=== PATIENT | female | born 1970 | race Caucasian/White ===

== ENCOUNTER 2019-09-09 17:16 | Inpatient (IN) | payer BC ==
[~2019-09-09] VITALS: Ht 170.2 cm; Wt 71.5 kg
[2019-09-09] MEDS ORDERED: CYMBALTA60 MG PO (17:36)
--- NOTE | 2019-09-09 17:45 | NUR ---
PT REPORTS USING MEDICAL MARIJUANA
[2019-09-09 17:55] LABS: APPEARANCE CLEAR (CLEAR); COLOR YELLOW (YELLOW); NITRITE NEGATIVE (NEGATIVE); PROTEIN NEGATIVE (NEGATIVE)
[2019-09-09 17:56] LABS: BASOPHILS 0.3 % (0-2); HEMATOCRIT 38.6 % (36.0-48.0); HEMOGLOBIN 13.6 g/dL (12-16); IMMATURE GRANULOCYTES 0.2 % (0-5); LYMPHOCYTES 24.8 % (15-50); MCH 30.4 pg (26.0-34.0); MCHC 35.2 g/dL (31.0-37.0); MCV 86.4 fL (80.0-100.0); MEAN PLATELET VOLUME 9.5 fL (7.4-10.4); MONOCYTES 10.5 % (2-11); NEUTROPHILS 63.2 % (40-80); RBC 4.47 10x6/uL (4.00-5.40); RDW 13.4 % (11.5-14.5)
[2019-09-09 17:56] LABS: BILIRUBIN NEGATIVE (NEGATIVE); GLUCOSE NEGATIVE (NEGATIVE); KETONE NEGATIVE (NEGATIVE); UROBILINOGEN NORMAL (NORMAL)
[2019-09-09 17:57] LABS: PLATELET COUNT 321 10x3/uL (130-400)
[2019-09-09 17:57] LABS: BACTERIA FEW /hpf (NEGATIVE); EPITHELIAL CELLS 0-5 /hpf (0-5); RED CELLS - URINE 0-5 /hpf (0-5); WHITE CELLS - URINE 0-5 /hpf (NEGATIVE)
[2019-09-09 18:11] LABS: UDS - AMPHET NEGATIVE QUAL (NEGATIVE); UDS - BARB NEGATIVE QUAL (NEGATIVE); UDS - BENZO POSITIVE QUAL (NEGATIVE); UDS - COCAINE NEGATIVE QUAL (NEGATIVE); UDS - OPIATE NEGATIVE QUAL (NEGATIVE); UDS - PCP NEGATIVE QUAL (NEGATIVE); UDS - THC POSITIVE QUAL (NEGATIVE)
[2019-09-09 18:31] LABS: ALKALINE PHOSPHATASE 79 U/L (46-116); ALT (SGPT) 22 U/L (10-68); BILIRUBIN - TOTAL 0.44 mg/dL (0.2-1.3); CALC OSMOLALITY 274 mosm/kg (275-300); CALCIUM 9.4 mg/dL (8.5-10.1); CARBON DIOXIDE 27.3 mmol/L (21.0-32.0); CHLORIDE - SERUM 101 mmol/L (98-107); CREATININE - SERUM 0.7 mg/dL (0.6-1.3); GLUCOSE 104 mg/dL (74-106); MAGNESIUM - SERUM 2.2 mg/dL (1.8-2.4); PROTEIN - SERUM 7.9 g/dL (6.4-8.2); SODIUM 139 mmol/L (136-145); UREA NITROGEN 4 mg/dL (7-18); eGFR NON AFRICAN AMERICAN > 90 mL/min (90-120)
[2019-09-09 18:34] LABS: POTASSIUM - SERUM 2.6 mmol/L (3.5-5.1)
[2019-09-09 18:56] LABS: C-REACTIVE PROTEIN 0.8 mg/dL (0.0-0.9); THYROID STIMULATING HORMONE 4.28 uIU/mL (0.36-3.74)
[2019-09-09 19:01] LABS: CKMB 1.6 U/L (0.0-3.6); CREATINE KINASE 174 UL (21-215)
--- NOTE | 2019-09-09 19:16 | NUR ---
PT ALERT AND IN SCRUBS. BELONGINGS SENT HOME WITH FAMILY. PT REQUESTING PEANUT BUTTER AND SALTINE CRACKERS- GIVEN.
[2019-09-09 19:37] LABS: ERYTHROCYTE SEDIMENTATION RATE 10 mm/hr (0-30)
--- NOTE | 2019-09-09 20:06 | NUR ---
VALIUM TO PATIENT AT PATIENT'S REQUEST. FAMILY STATES THAT IS ONE OF HER REGU LAR MEDICATIONS. CT SCAN OF THE HEAD ORDERED.
--- NOTE | 2019-09-09 20:28 | NUR ---
CT HERE TO DO SCAN.
--- NOTE | 2019-09-09 20:50 | NUR ---
PT BACK FROM CT. TALKED TO PATIENT ABOUT GETTING IV AND ABG- PT REFUSING AT THIS TIME. STATES "I'LL JUST HAVE TO GET A DIVING SUPERVISOR IF WE HAVE TO DO ALL THAT"- PT OPEN TO ORAL ANTIBIOTICS AND V/S AT THIS TIME.
--- NOTE | 2019-09-09 21:07 | NUR ---
ROOM CHANGED TO 2101.
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
[2019-09-09 22:29] VITALS: BP 136/89; BMI 24.7
--- NOTE | 2019-09-09 23:11 | NUR ---
PT STATES IF SHE DOESNT GET HER PAIN MEDICATION SHE WILL START KICKING IN 3 MINUITES. PAGED SEAN FREGOSO.
[2019-09-10] VITALS: BP 123/83
[2019-09-10 05:35] LABS: BASOPHILS 0.2 % (0-2); EOSINOPHILS 2.3 % (0-7); HEMATOCRIT 35.7 % (36.0-48.0); HEMOGLOBIN 12.2 g/dL (12-16); LYMPHOCYTES 42.7 % (15-50); MCHC 34.2 g/dL (31.0-37.0); MCV 87.7 fL (80.0-100.0); MONOCYTES 12.8 % (2-11); PLATELET COUNT 305 10x3/uL (130-400); RBC 4.07 10x6/uL (4.00-5.40); RDW 13.8 % (11.5-14.5)
[2019-09-10 05:39] LABS: WBC 4.3 10x3/uL (4.8-10.8)
[2019-09-10 06:03] LABS: ALBUMIN 3.2 g/dL (3.4-5.0); ALKALINE PHOSPHATASE 69 U/L (46-116); ALT (SGPT) 19 U/L (10-68); BILIRUBIN - TOTAL 0.35 mg/dL (0.2-1.3); CALC OSMOLALITY 278 mosm/kg (275-300); CALCIUM 8.9 mg/dL (8.5-10.1); CARBON DIOXIDE 30.1 mmol/L (21.0-32.0); CHLORIDE - SERUM 103 mmol/L (98-107); CREATININE - SERUM 0.8 mg/dL (0.6-1.3); GLUCOSE 117 mg/dL (74-106); PROTEIN - SERUM 6.6 g/dL (6.4-8.2); SODIUM 141 mmol/L (136-145); UREA NITROGEN 5 mg/dL (7-18); eGFR NON AFRICAN AMERICAN 80 mL/min (90-120)
[2019-09-10 06:13] LABS: POTASSIUM - SERUM 2.8 mmol/L (3.5-5.1)
[2019-09-10] MEDS ORDERED: HYDROCODON-ACE1 EAC2 PO (07:38)
[2019-09-10] MEDS ORDERED: VALIUM5 MG PO (07:38)
[2019-09-10 08:02] VITALS: BP 141/93
[2019-09-10 08:27] VITALS: Ht 170.2 cm; Wt 71.5 kg
[2019-09-10 11:56] VITALS: BP 151/83
--- NOTE | 2019-09-10 14:43 | NUR ---
I have reviewed this patient and I concur with the Shift Assessment completed by the Licensed Practical Nurse today this shift.
[2019-09-10 17:20] VITALS: BP 146/75
--- NOTE | 2019-09-10 19:26 | NUR ---
RECEIVED LAYING IN BED WITH EYES OPEN AND TV ON. ALERT AND ORIENTED X2. PLEASANT AND CALM. SOFT SPOKEN. UP AD NIKKI TO B/R. DENIES ANY NEEDS AT THIS TIME. DENIES ANY PAIN.
[2019-09-10 20:30] VITALS: BP 116/77
--- NOTE | 2019-09-11 01:39 | NUR ---
RESTING IN BED WITH EYES CLOSED. NO S/S OF DISTRESS OBSERVED.
--- NOTE | 2019-09-11 04:32 | NUR ---
REQUESTED SOMETHING FOR NECK PAIN. VALIUM GIVEN FOR SPASMS. TALKING DELUSIONAL. UNABLE TO CARRY OUT THOUGHTS. TALKING ABOUT [employer] BEING AFTER HER AND WATCHING HER. BECOMES APOLOGETIC AND THEN TALKS ABOUT EX . REMAINS CALM.
--- NOTE | 2019-09-11 07:28 | NUR ---
PT AMBULATING IN HALLWAY WITH STEADY GAIT. DAUGHTER @ SIDE. DENIES NEEDS AT THIS TIME. PT STATES SHE IS HURTING IN SHOULDER AND LOWER BACK. WILL RECIEVE PAIN MEDICATION ORDERED. DENIES FURTHER NEEDS AT THIS TIME. WILL CONTINUE TO MONITOR.
[2019-09-11 07:51] LABS: ANION GAP 10.6 mmol/L (8-16); CALCIUM 8.9 mg/dL (8.5-10.1); CREATININE - SERUM 0.9 mg/dL (0.6-1.3); POTASSIUM - SERUM 3.6 mmol/L (3.5-5.1)
[2019-09-11 08:04] LABS: HEMATOCRIT 38.5 % (36.0-48.0); MCH 30.3 pg (26.0-34.0); MCHC 33.8 g/dL (31.0-37.0); MEAN PLATELET VOLUME 10.1 fL (7.4-10.4); PLATELET COUNT 339 10x3/uL (130-400); RBC 4.29 10x6/uL (4.00-5.40); RDW 14.1 % (11.5-14.5); WBC 5.3 10x3/uL (4.8-10.8)
[2019-09-11 08:10] LABS: MCV 89.7 fL (80.0-100.0)
[2019-09-11 08:46] LABS: EOSINOPHILS 1 % (0-7); LYMPHOCYTES 24 % (15-50); MONOCYTES 17 % (2-11); NEUTROPHILS 58 % (40-80); PLATELET ESTIMATE NORMAL
--- NOTE | 2019-09-11 09:58 | NUR ---
I have reviewed this patient and I concur with the Shift Assessment completed by the Licensed Practical Nurse today this shift.
[2019-09-11 10:09] VITALS: BP 123/59
--- NOTE | 2019-09-11 10:34 | NUR ---
SPENT SEVERAL MINUTES WITH FAMILY DISCUSSING POC. FAMILY IS INSISTANT ON SENDING HER TO A PSYCH FACILITY. BELIEVES SHE IS NOT A DANGER TO HERSELF OR ANYONE ELSE AT THIS MOMENT BUT WILL BE WHEN SHE GOES HOME. LEFT A MESSAGE WITH ALF FOR DR. CLARK TO COME SPEAK WITH FAMILY WHEN HE ARRIVES AT THE HOSPITAL THEY STILL HAVE QUESTIONS AND CONCERNS.
[2019-09-11] MEDS ORDERED: CYMBALTA30 MG PO (11:00)
[2019-09-11] MEDS ORDERED: PERPHENAZINE2 MG PO (11:00)
[2019-09-11] MEDS ORDERED: MELATONIN 3 MG1 TAB PO (11:01)
--- NOTE | 2019-09-11 11:47 | MORECARE ---
CASE MANAGEMENT DISCHARGE SUMMARY PATIENT: AMANDA DAMON KERI UNIT: [id number] ADM DATE: 09/09/19 AGE: 48 : 66 SEX: F ROOM/BED: D.2102 AUTHOR: BECKY WILLETT PHYSICIAN: REFERRING PHYSICIAN: BEV SAXENA MD DATE OF SERVICE: 09/11/19 Discharge Plan Patient Name: AMANDA DAMON Facility: [facility]:[place] : 1970 Planned Disposition: Home Anticipated Discharge Date: 09/11/19 Discharge Date: Expected LOS: 2 Initial Reviewer: [email or web address] Initial Review Date: 09/09/2019 Generated: 09/11/19 12:46 pm Patient Name: AMANDA DAMON Page [id number] at 1147 All edits/amendments must be made on the electronic document DICTATION DATE: 09/11/19 1146 IN STORE MARKETING ASSOCIATE: MALLIKA 09/11/19 1146 RPT#: [id number] DC DATE: STATUS: ADM IN [facility] [address] [place] [address] END OF REPORT
--- NOTE | 2019-09-11 12:01 | MORECARE ---
CASE MANAGEMENT DISCHARGE SUMMARY PATIENT: AMANDA DAMON UNIT: [id number] ADM DATE: 09/09/19 AGE: 48 : 66 SEX: F ROOM/BED: D.2102 AUTHOR: BECKY WILLETT PHYSICIAN: REFERRING PHYSICIAN: BEV SAXENA MD DATE OF SERVICE: 09/11/19 Discharge Plan Patient Name: AMANDA DAMON Facility: [facility]:[place] : 1970 Planned Disposition: Home Anticipated Discharge Date: 09/11/19 Discharge Date: Expected LOS: 2 Initial Reviewer: [email or web address] Initial Review Date: 09/09/2019 Generated: 09/11/19 1:01 pm DCPIA - Discharge Planning Initial Assessment Updated by [email or web address]: Diaz Ibarra on 09/11/19 11:55 am * Is the patient Alert and Oriented? Yes * How many steps to enter\exit or inside your home? 2-O / 14-I * PCP NURSE PRACTITIONER, [address] [place] [address] * Pharmacy [facility] * Preadmission Environment Home Alone * ADLs Independent * Equipment Other * Other Equipment HOME TRACTION EQUIPMENT FOR NECK PAIN * List name and contact numbers for known caregivers / representatives who currently or will assist patient after discharge: JACQUE ORTIZ DTR, * Verbal permission to speak to the caregivers and representatives has been obtained from the patient. Yes * Community resources currently utilized None * Please name any agencies selected above. NONE * Additional services required to return to the preadmission environment? No * Can the patient safely return to the preadmission environment? Yes * Has this patient been hospitalized within the prior 30 days at any hospital? No Last DP export: 09/11/19 10:47 Patient Name: AMANDA DAMON Page 30478 at 1201 All edits/amendments must be made on the electronic document DICTATION DATE: 09/11/19 1201 REAL PROPERTY EVALUATOR: MALLIKA 09/11/19 1201 RPT#: [id number] DC DATE: STATUS: ADM IN [facility] [address] [place] [address] END OF REPORT
--- NOTE | 2019-09-11 12:16 | MORECARE ---
CASE MANAGEMENT DISCHARGE SUMMARY PATIENT: AMANDA DAMON UNIT: [id number] ADM DATE: 09/09/19 AGE: 48 : 66 SEX: F ROOM/BED: D.2109 AUTHOR: BRENNON,DOC PHYSICIAN: REFERRING PHYSICIAN: BEV SAXENA MD DATE OF SERVICE: 09/11/19 Discharge Plan Patient Name: AMANDA DAMON Facility: [facility]:[place] : 1970 Planned Disposition: Home Anticipated Discharge Date: 09/11/19 Discharge Date: Expected LOS: 2 Initial Reviewer: [email or web address] Initial Review Date: 09/09/2019 Generated: 09/11/19 1:15 pm Comments DCP- Discharge Planning Updated by [email or web address]: Diaz Ibarra on 09/11/19 11:[address] Patient Name: AMANDA DAMON Admission Status: ER Accout number: [id number] Admission Date: 09-09-2019 : 1970 Admission Diagnosis: Attending: BEV SAXENA Current LOS: 2 Anticipated DC Date: 09-11-2019 Planned Disposition: Home Primary Insurance: [employer] FEP Discharge Planning Comments: CM RECEIVED ORDER TO PROVIDE PT WITH INFORMATION TO [facility] AND [facility]. CM MET WITH PT, DAUGHTER AND SISTER IN ROOM TO DISCUSS DISCHARGE PLANNING AND NEEDS.AMANDA DAMON provided verbal consent to discuss current and ongoing needs with/in the presence of: HER DAUGHTER AND SISTER REPORTING THEY KNOW EVERYTHING. PT REPORTS LIVING AT HOME INDEPENDENTLY AND ALONE. PT HAS HOME TRACTION EQUIPMENT FOR HER NECK AND NO MEDICAL EQUIPMENT PROVIDER PREFERENCE. PT HAS NO OUTSIDE SERVICES ASSISTING IN THE HOME. CM DISCUSSED AVAILABILITY OF HOME HEALTH, REHAB SERVICES AND MEDICAL EQUIPMENT. PT DENIES DISCHARGE NEEDS, REPORTS HER DAUGHTER WILL PICK HER UP FOR DISCHARGE HOME. CM PROVIDED AND DISCUSSED INFORMATION TO [facility] AND ENCOURAGED PT TO GO SOON POSSIBLE. PT IN AGREEMENT WITH GOING LONG SHE DOES NOT HAVE TO SEE A MALE DOCTOR. CM INFORMED PT THAT [facility] HAS MANY DOCTORS AND THERAPIST. PT'S DAUGHTER MET WITH CM OUTSIDE ROOM AND INFORMED CM THAT SHE FEELS PT IS DANGEROUS TO HERSELF AND OTHERS AND WANTS HER MOTHER IN A PSYCHIATRIC FACILITY FOR FURHTER EVALUATION. CM EXPLAINED THAT THE DOCTOR DID NOT TAKE A 72 HOUR HOLD. CM EXPLAINED PROCESS OF 72 HOUR HOLD AND HOW TO FILE AT THE MELT HELPER'S OFFICE. CM EXPLAINED LOCATION OF [facility]. PT'S SISTER APPROACED AND THE ABOVE INFORMATION DISCUSSED AGAIN. PT'S SISTER WOULD LIKE IT IN THE MEDICAL CHART THAT THEY FEEL THAT PT IS DANGEROUS. CM EXPLAINED THAT CM WILL NOTE THIS AND AGAIN ENCOURAGED BOTH THE PT'S DAUGHTER AND PT'S SISTER TO SEEK ASSISTANCE THROUGH THE COURT SYSTEM. BOTH LEFT TO GO OUTSIDE. CM INFORMED CARE TEAM OF THE ABOVE INFORMATION AT MULTIDISCIPLINARY TEAM MEETING THIS MORNING. CM TO FOLLOW AND ASSIST IF NEEDED. Wood Repatcher: Diaz Ibarra DCPIA - Discharge Planning Initial Assessment Updated by [email or web address]: Diaz Ibarra on 09/11/19 11:55 am * Is the patient Alert and Oriented? Yes * How many steps to enter\exit or inside your home? 2-O / 14-I * PCP NURSE PRACTITIONER, [address] [place] [address] * Pharmacy [facility] * Preadmission Environment Home Alone * ADLs Independent * Equipment Other * Other Equipment HOME TRACTION EQUIPMENT FOR NECK PAIN * List name and contact numbers for known caregivers / representatives who currently or will assist patient after discharge: JACQUE ORTIZ, DTR, * Verbal permission to speak to the caregivers and representatives has been obtained from the patient. Yes * Community resources currently utilized None * Please name any agencies selected above. NONE * Additional services required to return to the preadmission environment? No * Can the patient safely return to the preadmission environment? Yes * Has this patient been hospitalized within the prior 30 days at any hospital? No Last DP export: 09/11/19 11:01 Patient Name: AMANDA DAMON Page 20363 at 1216 All edits/amendments must be made on the electronic document DICTATION DATE: 09/11/191214 HRIS COORDINATOR: MALLIKA 09/11/191214 RPT#: [id number] DC DATE: STATUS: ADM IN [facility] [address] [place] [address] END OF REPORT
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
[2019-09-11 14:12] VITALS: BP 130/80
--- NOTE | 2019-09-11 14:16 | MORECARE ---
CASE MANAGEMENT DISCHARGE SUMMARY PATIENT: AMANDA DAMON UNIT: [id number] ADM DATE: 09/09/19 AGE: 48 : 66 SEX: F ROOM/BED: D.2106 AUTHOR: BRENNON,DOC PHYSICIAN: REFERRING PHYSICIAN: BEV SAXENA MD DATE OF SERVICE: 09/11/19 Discharge Plan Patient Name: AMANDA DAMON Facility: [facility]:[place] : 1970 Planned Disposition: Psych facility Anticipated Discharge Date: 09/11/19 Discharge Date: Expected LOS: 2 Initial Reviewer: [email or web address] Initial Review Date: 09/09/2019 Generated: 09/11/19 3:16 pm Comments DCP- Discharge Planning Updated by [id number]: Diaz Ibarra on 09/11/19 11:[address] Patient Name: AMANDA DAMON Admission Status: ER Accout number: [id number] Admission Date: 09-09-2019 : 1970 Admission Diagnosis: Attending: BEV SAXENA Current LOS: 2 Anticipated DC Date: 09-11-2019 Planned Disposition: Home Primary Insurance: [employer] [facility] Discharge Planning Comments: CM RECEIVED ORDER TO PROVIDE PT WITH INFORMATION [facility]. CM MET WITH PT, DAUGHTER AND SISTER IN ROOM TO DISCUSS DISCHARGE PLANNING AND NEEDS.AMANDA DAMON provided verbal consent to discuss current and ongoing needs with/in the presence of: HER DAUGHTER AND SISTER REPORTING THEY KNOW EVERYTHING. PT REPORTS LIVING AT HOME INDEPENDENTLY AND ALONE. PT HAS HOME TRACTION EQUIPMENT FOR HER NECK AND NO MEDICAL EQUIPMENT PROVIDER PREFERENCE. PT HAS NO OUTSIDE SERVICES ASSISTING IN THE HOME. CM DISCUSSED AVAILABILITY OF HOME HEALTH, REHAB SERVICES AND MEDICAL EQUIPMENT. PT DENIES DISCHARGE NEEDS, REPORTS HER DAUGHTER WILL PICK HER UP FOR DISCHARGE HOME. CM PROVIDED AND DISCUSSED INFORMATION TO [facility] AND ENCOURAGED PT TO GO SOON POSSIBLE. PT IN AGREEMENT WITH GOING LONG SHE DOES NOT HAVE TO SEE A MALE DOCTOR. CM INFORMED PT THAT [facility] HAS MANY DOCTORS AND THERAPIST. PT'S DAUGHTER MET WITH CM OUTSIDE ROOM AND INFORMED CM THAT SHE FEELS PT IS DANGEROUS TO HERSELF AND OTHERS AND WANTS HER MOTHER IN A PSYCHIATRIC FACILITY FOR FURHTER EVALUATION. CM EXPLAINED THAT THE DOCTOR DID NOT TAKE A 72 HOUR HOLD. CM EXPLAINED PROCESS OF 72 HOUR HOLD AND HOW TO FILE AT THE PSYCHIATRIC NP'S OFFICE. CM EXPLAINED LOCATION OF [facility]. PT'S SISTER APPROACED AND THE ABOVE INFORMATION DISCUSSED AGAIN. PT'S SISTER WOULD LIKE IT IN THE MEDICAL CHART THAT THEY FEEL THAT PT IS DANGEROUS. CM EXPLAINED THAT CM WILL NOTE THIS AND AGAIN ENCOURAGED BOTH THE PT'S DAUGHTER AND PT'S SISTER TO SEEK ASSISTANCE THROUGH THE COURT SYSTEM. BOTH LEFT TO GO OUTSIDE. CM INFORMED CARE TEAM OF THE ABOVE INFORMATION AT MULTIDISCIPLINARY TEAM MEETING THIS MORNING. CM TO FOLLOW AND ASSIST IF NEEDED. Lobby Concierge: Diaz Ibarra DCPIA - Discharge Planning Initial Assessment Updated by [id number]: Diaz Ibarra on 09/11/19 11:55 am * Is the patient Alert and Oriented? Yes * How many steps to enter\exit or inside your home? 2-O / 14-I * PCP NURSE PRACTITIONER, [address] [place] [address] * Pharmacy [facility] * Preadmission Environment Home Alone * ADLs Independent * Equipment Other * Other Equipment HOME TRACTION EQUIPMENT FOR NECK PAIN * List name and contact numbers for known caregivers / representatives who currently or will assist patient after discharge: JACQUE ORTIZ, DTR, * Verbal permission to speak to the caregivers and representatives has been obtained from the patient. Yes * Community resources currently utilized None * Please name any agencies selected above. NONE * Additional services required to return to the preadmission environment? No * Can the patient safely return to the preadmission environment? Yes * Has this patient been hospitalized within the prior 30 days at any hospital? No External Providers External Provider: [facility] Next Contact Date: 09/11/2019 Service Request Date: Service Type: Resolution: Reviewer: Comments: Last DP export: 09/11/19 11:16 Patient Name: AMANDA DAMON Page [id number] at 1416 All edits/amendments must be made on the electronic document DICTATION DATE: 09/11/191415 CHILDREN'S LIBRARIAN: MALLIKA 09/11/191415 RPT#: [id number] MS DATE: STATUS: ADM IN [facility] [address] [place] [address] END OF REPORT
--- NOTE | 2019-09-11 14:43 | MORECARE ---
CASE MANAGEMENT DISCHARGE SUMMARY PATIENT: AMANDA DAMON KERI UNIT: [id number] ADM DATE: 09/09/19 AGE: 48 : 66 SEX: F ROOM/BED: D.2102 AUTHOR: BECKY WILLETT PHYSICIAN: REFERRING PHYSICIAN: BEV SAXENA MD DATE OF SERVICE: 09/11/19 Discharge Plan Patient Name: [facility]ANDA DAMON [facility] [facility] 1970 Planned Disposition: Psych facility Anticipated Discharge Date: 09/11/19 Discharge Date: Expected LOS: 2 Initial Reviewer: [id number] Initial Review Date: 09/09/2019 Generated: 09/11/19 3:42 pm Comments DCP- Discharge Planning Updated by [email or web address]: Diaz Ibarra on 09/11/19 1:[address] Patient Name: AMANDA DAMON Encounter No: [id number] : 1970 Primary Insurance: [employer] FEP Anticipated DC Date: 09-11-2019 Planned Disposition: Psych facility External Planned Provider: FIRST ACCEPTING, VOLUNTARY ADMIT DCP follow-up note: CM SPOKE TO BEDSIDE NURSE WHO INFORMED CM THAT PT WANTS VOLUNTARY COMMITMENT TO INPATIENT PSYCHIATRIC CARE. DR. JONES WILL DO DOC TO DOC IF REQUIRED. CM MET WITH PT IN ROOM, PT IN AGREEMENT WITH VOLUNTARY COMMITMENT TO INPATIENT PSYCHIATRIC UNIT. CM CALLED [facility] EASY ADMIT LINE, , PROVIDED REFERRAL INFORMATION TO RADHA WHO WILL BEGIN SEEKING PLACEMENT WHEN PACKET IS RECEIVED. CM FAXED REFERRAL TO [facility] EAS[facility] ADMIT AT [phone]. CM WAITING INPATIENT PSYCHIATRIC PLACEMENT, [facility] EASY ADMIT LINE IS WORKING ON PLACEMENT. MITCH Slater DCP- Discharge Planning Updated by [id number]: Diaz Ibarra on 09/11/19 11:[address] Patient Name: AMANDA DAMON Admission Status: ER Accout number: [id number] Admission Date: 09-09-2019 : 1970 Admission Diagnosis: Attending: BEV SAXENA Current LOS: 2 Anticipated DC Date: 09-11-2019 Planned Disposition: Home Primary Insurance: [employer] FEP Discharge Planning Comments: CM RECEIVED ORDER TO PROVIDE PT WITH INFORMATION TO [facility] AND [facility]. CM MET WITH PT, DAUGHTER AND SISTER IN ROOM TO DISCUSS DISCHARGE PLANNING AND NEEDS.AMANDA DAMON provided verbal consent to discuss current and ongoing needs with/in the presence of: HER DAUGHTER AND SISTER REPORTING THEY KNOW EVERYTHING. PT REPORTS LIVING AT HOME INDEPENDENTLY AND ALONE. PT HAS HOME TRACTION EQUIPMENT FOR HER NECK AND NO MEDICAL EQUIPMENT PROVIDER PREFERENCE. PT HAS NO OUTSIDE SERVICES ASSISTING IN THE HOME. CM DISCUSSED AVAILABILITY OF HOME HEALTH, REHAB SERVICES AND MEDICAL EQUIPMENT. PT DENIES DISCHARGE NEEDS, REPORTS HER DAUGHTER WILL PICK HER UP FOR DISCHARGE HOME. CM PROVIDED AND DISCUSSED INFORMATION TO [facility] AND [facility] AND ENCOURAGED PT TO GO SOON POSSIBLE. PT IN AGREEMENT WITH GOING LONG SHE DOES NOT HAVE TO SEE A MALE DOCTOR. CM INFORMED PT THAT [facility] HAS MANY DOCTORS AND THERAPIST. PT'S DAUGHTER MET WITH CM OUTSIDE ROOM AND INFORMED CM THAT SHE FEELS PT IS DANGEROUS TO HERSELF AND OTHERS AND WANTS HER MOTHER IN A PSYCHIATRIC FACILITY FOR FURHTER EVALUATION. CM EXPLAINED THAT THE DOCTOR DID NOT TAKE A 72 HOUR HOLD. CM EXPLAINED PROCESS OF 72 HOUR HOLD AND HOW TO FILE AT THE GRINDER SET UP OPERATOR JIG'S OFFICE. CM EXPLAINED LOCATION OF [facility]. PT'S SISTER APPROACED AND THE ABOVE INFORMATION DISCUSSED AGAIN. PT'S SISTER WOULD LIKE IT IN THE MEDICAL CHART THAT THEY FEEL THAT PT IS DANGEROUS. CM EXPLAINED THAT CM WILL NOTE THIS AND AGAIN ENCOURAGED BOTH THE PT'S DAUGHTER AND PT'S SISTER TO SEEK ASSISTANCE THROUGH THE COURT SYSTEM. BOTH LEFT TO GO OUTSIDE. CM INFORMED CARE TEAM OF THE ABOVE INFORMATION AT MULTIDISCIPLINARY TEAM MEETING THIS MORNING. CM TO FOLLOW AND ASSIST IF NEEDED. Garment Parts Cutter Machine: Diaz Ibarra DCA - Discharge Planning Initial Assessment Updated by [id number]: Diaz Ibarra on 09/11/19 11:55 am * Is the patient Alert and Oriented? Yes * How many steps to enter\exit or inside your home? 2-O / 14-I * PCP NURSE PRACTITIONER, [address] [place] [address] * Pharmacy [facility] * Preadmission Environment Home Alone * ADLs Independent * Equipment Other * Other Equipment HOME TRACTION EQUIPMENT FOR NECK PAIN * List name and contact numbers for known caregivers / representatives who currently or will assist patient after discharge: JACQUE ORTIZ, DTNathalia, * Verbal permission to speak to the caregivers and representatives has been obtained from the patient. Yes * Community resources currently utilized None * Please name any agencies selected above. NONE * Additional services required to return to the preadmission environment? No * Can the patient safely return to the preadmission environment? Yes * Has this patient been hospitalized within the prior 30 days at any hospital? No Last DP export: 09/11/19 1:16 Patient Name: AMANDA DAMON Page [id number] at 1443 All edits/amendments must be made on the electronic document DICTATION DATE: 09/11/19 1442 SUPERINTENDENT TRANSMISSION: MALLIKA 09/11/19 1442 RPT#: [id number] DC DATE: STATUS: ADM IN [facility] [address] [place] [address] END OF REPORT
--- NOTE | 2019-09-11 18:30 | NUR ---
PT ACCEPTED TO [facility] [place]. ROOM NUMBER RECIEVED: [id number]. REPORT CALLED TO RN. TRANSFER SHEET SIGNED. PT STATED SHE WAS HAVING ANXIETY ABOUT THE TRANSFER. PRN ALEN RECIEVED PER ORDER. DENIES FURTHER NEEDS AT THIS TIME. [facility] CALLED AND MADE AWARE OF TRANSFER. STATED 30MIN- 1HR UNTIL ARRIVAL.
[2019-09-11 19:00] VITALS: BP 134/80
--- NOTE | 2019-09-12 09:09 | MORECARE ---
CASE MANAGEMENT DISCHARGE SUMMARY PATIENT: AMANDA DAMON KERI UNIT: [id number] ADM DATE: 09/09/19 AGE: 48 : 66 SEX: F ROOM/BED: D.2102 AUTHOR: BECKY WILLETT PHYSICIAN: REFERRING PHYSICIAN: BEV SAXENA MD DATE OF SERVICE: 09/12/19 Discharge Plan Patient Name: AMANDA DAMON [facility] [facility] 1970 Planned Disposition: Psych facility Anticipated Discharge Date: 09/11/19 Discharge Date: 09/11/2019 Expected LOS: 2 Initial Reviewer: [id number] Initial Review Date: 09/09/2019 Generated: 09/12/19 10:08 am Comments DCP- Discharge Planning Updated by [id number]: Diaz Ibarra on 09/11/19 1:[address] Patient Name: AMANDA DAMON Encounter No: [id number] : 1970 Primary Insurance: [employer] FEP Anticipated DC Date: 09-11-2019 Planned Disposition: Psych facility External Planned Provider: FIRST ACCEPTING, VOLUNTARY ADMIT DCP follow-up note: CM SPOKE TO BEDSIDE NURSE WHO INFORMED CM THAT PT WANTS VOLUNTARY COMMITMENT TO INPATIENT PSYCHIATRIC CARE. DR. JONES WILL DO DOC TO DOC IF REQUIRED. CM MET WITH PT IN ROOM, PT IN AGREEMENT WITH VOLUNTARY COMMITMENT TO INPATIENT PSYCHIATRIC UNIT. CM CALLED [facility] EASY ADMIT LINE, , PROVIDED REFERRAL INFORMATION TO RADHA WHO WILL BEGIN SEEKING PLACEMENT WHEN PACKET IS RECEIVED. CM FAXED REFERRAL TO [facility] EASY ADMIT AT [phone]. CM WAITING INPATIENT PSYCHIATRIC PLACEMENT, [facility] EASY ADMIT LINE IS WORKING ON PLACEMENT. MITCH Slater DCP- Discharge Planning Updated by [id number]: Diaz Ibarra on 09/11/19 11:[address] Patient Name: AMANDA DAMON Admission Status: ER Accout number: [id number] Admission Date: 09-09-2019 : 1970 Admission Diagnosis: Attending: BEV SAXENA Current LOS: 2 Anticipated DC Date: 09-11-2019 Planned Disposition: Home Primary Insurance: [employer] FEP Discharge Planning Comments: CM RECEIVED ORDER TO PROVIDE PT WITH [facility] CM MET WITH PT, DAUGHTER AND SISTER IN ROOM TO DISCUSS DISCHARGE PLANNING AND NEEDS.AMANDA DAMON provided verbal consent to discuss current and ongoing needs with/in the presence of: HER DAUGHTER AND SISTER REPORTING THEY KNOW EVERYTHING. PT REPORTS LIVING AT HOME INDEPENDENTLY AND ALONE. PT HAS HOME TRACTION EQUIPMENT FOR HER NECK AND NO MEDICAL EQUIPMENT PROVIDER PREFERENCE. PT HAS NO OUTSIDE SERVICES ASSISTING IN THE HOME. CM DISCUSSED AVAILABILITY OF HOME HEALTH, REHAB SERVICES AND MEDICAL EQUIPMENT. PT DENIES DISCHARGE NEEDS, REPORTS HER DAUGHTER WILL PICK HER UP FOR DISCHARGE HOME. CM PROVIDED AND DISCUSSED INFORMATION TO [facility] AND ENCOURAGED PT TO GO SOON POSSIBLE. PT IN AGREEMENT WITH GOING LONG SHE DOES NOT HAVE TO SEE A MALE DOCTOR. CM INFORMED PT THAT [facility] HAS MANY DOCTORS AND THERAPIST. PT'S DAUGHTER MET WITH CM OUTSIDE ROOM AND INFORMED CM THAT SHE FEELS PT IS DANGEROUS TO HERSELF AND OTHERS AND WANTS HER MOTHER IN A PSYCHIATRIC FACILITY FOR FURHTER EVALUATION. CM EXPLAINED THAT THE DOCTOR DID NOT TAKE A 72 HOUR HOLD. CM EXPLAINED PROCESS OF 72 HOUR HOLD AND HOW TO FILE AT THE INSURANCE AGENT'S OFFICE. CM EXPLAINED LOCATION OF [facility]. PT'S SISTER APPROACED AND THE ABOVE INFORMATION DISCUSSED AGAIN. PT'S SISTER WOULD LIKE IT IN THE MEDICAL CHART THAT THEY FEEL THAT PT IS DANGEROUS. CM EXPLAINED THAT CM WILL NOTE THIS AND AGAIN ENCOURAGED BOTH THE PT'S DAUGHTER AND PT'S SISTER TO SEEK ASSISTANCE THROUGH THE COURT SYSTEM. BOTH LEFT TO GO OUTSIDE. CM INFORMED CARE TEAM OF THE ABOVE INFORMATION AT MULTIDISCIPLINARY TEAM MEETING THIS MORNING. CM TO FOLLOW AND ASSIST IF NEEDED. Print Journalist: Diaz Ibarra DCPIA - Discharge Planning Initial Assessment Updated by [email or web address]: Diaz Ibarra on 09/11/19 11:55 am * Is the patient Alert and Oriented? Yes * How many steps to enter\exit or inside your home? 2-O / 14-I * PCP NURSE PRACTITIONER, [address] [place] [address] * Pharmacy [facility] * Preadmission Environment Home Alone * ADLs Independent * Equipment Other * Other Equipment HOME TRACTION EQUIPMENT FOR NECK PAIN * List name and contact numbers for known caregivers / representatives who currently or will assist patient after discharge: JACQUE ORTIZ, YANET, * Verbal permission to speak to the caregivers and representatives has been obtained from the patient. Yes * Community resources currently utilized None * Please name any agencies selected above. NONE * Additional services required to return to the preadmission environment? No * Can the patient safely return to the preadmission environment? Yes * Has this patient been hospitalized within the prior 30 days at any hospital? No Last DP export: 09/11/19 1:43 Patient Name: AMANDA DAMON Page [id number] at 0909 All edits/amendments must be made on the electronic document DICTATION DATE: 09/12/19907 LIVE AMMUNITION INSPECTOR: MALLIKA 09/12/19907 RPT#: [id number] DC DATE:09/11/19 STATUS: DIS IN [facility] [address] [place] [address] END OF REPORT
[2019-09-13 13:10] LABS: EHRLICHIA CHAFF IGG Negative (Neg:<1:64); EHRLICHIA CHAFF IGM Negative (Neg:<1:20); HGE IGG TITER Negative (Neg:<1:64); HGE IGM TITER Negative (Neg:<1:20)
[2019-09-14 03:07] LABS: RMSF IGM 0.94 index (0.00-0.89)
== END 2019-09-11 19:30 | disposition short-term general hospital (02) | DRG 885 ==
LOC: D.ER 17:16 → D.M2 20:06
PROVIDERS: Family Medicine; ADMIT Internal Medicine Nephrology; ATTEND Internal Medicine Nephrology
DX: F22 Delusional disorders (principal); N17.9 Acute kidney failure, unspecified; F32.1 Major depressive disorder, single episode, moderate; F29 Unspecified psychosis not due to a substance or known physiological condition; E87.6 Hypokalemia; F12.90 Cannabis use, unspecified, uncomplicated; F13.90 Sedative, hypnotic, or anxiolytic use, unspecified, uncomplicated; F60.9 Personality disorder, unspecified